=== PATIENT | male | born 1970 | race Caucasian/White ===

== ENCOUNTER → 2021-04-15 | Outpatient (CLI) | payer MEDICARE | LOC: US 09:12 | PROVIDERS: ATTEND Family Medicine | DX: B19.20 Unspecified viral hepatitis C without hepatic coma (principal) | CPT/HCPCS: 76705 ==

== ENCOUNTER → 2024-09-14 | Day surgery (SDC) | payer MEDICARE ==
[~2024-09-14] MED LIST: LIDOCAINE HCL 2% LOCAL INJ 5 ML SDV VIAL INJ ONE; PROPOFOL IV EMULSION 10 MG/ML 20 ML VIAL ONE
[2024-09-14] MEDS: LACTATED RINGER'S 1,000 ML ONE (05:57)
[2024-09-14 07:45] VITALS: BP 106/86; PULSE 64; RESP 16; O2SAT 99
== END | disposition home or self-care (01) ==
LOC: EDBD 05:05 → OR 05:05
PROVIDERS: ATTEND Internal Medicine Gastroenterology
DX: Z12.11 Encounter for screening for malignant neoplasm of colon (principal); K57.30 Diverticulosis of large intestine without perforation or abscess without bleeding; K64.8 Other hemorrhoids; Z71.3 Dietary counseling and surveillance; L40.9 Psoriasis, unspecified; K76.0 Fatty (change of) liver, not elsewhere classified; E66.01 Morbid (severe) obesity due to excess calories; Z78.9 Other specified health status; Z01.810 Encounter for preprocedural cardiovascular examination; Z68.28 Body mass index [BMI] 28.0-28.9, adult
CPT/HCPCS: 45378; 93005; J2003; J2704; J7121